=== PATIENT | male | born 1955 | race Caucasian/White ===

== ENCOUNTER 2024-06-28 17:56 | Inpatient (IN) | payer MEDICARE, OTHER, SELFPAY ==
[2024-06-28] VITALS (10 sets, daily range): BP systolic 102–138; BP diastolic 65–78; BMI 33.8; BMI 33.7
[2024-06-28 12:19] LABS: ALT (SGPT) 21 U/L (0-50); AST (SGOT) 37 U/L (17-59); Albumin 2.9 g/dl (3.5-5.0); Alkaline Phosphatase 73 U/L (38-126); Blood Urea Nitrogen 17 mg/dl (9-20); Calcium 8.2 mg/dl (8.4-10.2); Carbon Dioxide 25 mmol/L (22-30); Chloride 102 mmol/L (98-107); Estimated Creatinine Clearance 52 ml/min; Glucose 127 mg/dl (70-99); Potassium 3.1 mmol/L (3.5-5.1); Sodium 133 mmol/L (135-145); Total Bilirubin 0.9 mg/dl (0.2-1.3); Total Protein 6.8 g/dl (6.3-8.2); eGFR 43.37
--- NOTE | 2024-06-28 12:22 | ED.GENMED ---
History of Present Illness
General
Chief Complaint: Abnormal Lab Value
Source: patient
Exam Limitations: none
Time Seen by Provider: 06/28/24 11:27
History of Present Illness
History of Present Illness:
69-year-old male presents with fatigue and early satiety as well as weight loss. This has been getting worse over the past 2 weeks. He is lost 10 pounds in that time. He denies abdominal pain but takes 2 bites of food and feels full. He was
tested for COVID and flu which was negative. Outpatient labs drawn by Dr. Alvarado demonstrated elevated white blood cell count and low and they sent him here for evaluation. He has a history of hypertension and BPH. No prior abdominal surgical
Phy Exam
Physical Exam
Physical Exam:
General: Well-appearing male no acute respiratory distress
HEENT: Normocephalic atraumatic dorsalis
Heart: Regular rate and rhythm no murmurs
Lungs: CTA bilaterally
Abdomen: Soft nontender nondistended no guarding or rebound
Extremities: No cyanosis or edema
Skin: Warm, no rash
Course
Orders/Labs/Results
Orders:
Orders
06/28/24 11:41
CT Abd/pelvis W Iv Cont Urgent
Comment:
Reason For Exam: abdominal fullness
06/28/24 11:42
Complete Blood Count/With Diff Urgent
Comprehensive Metabolic Panel Urgent
LDH Urgent
Manual Differential Urgent
Uric Acid Urgent
06/28/24 14:04
Add On- LAB Urgent
Tests Added?: uric acid, LDH
06/28/24 14:21
0.9% Sodium Chloride 1000 ml [Nss] 1,000 ml IV BOLUS
Potassium Chloride [KCl] 40 meq PO NOW STA
06/28/24 16:08
Allopurinol [Zyloprim] 300 mg PO NOW STA
Abnormal Lab Results
06/28/24
11:42
WBC 84.5 H* 10^3/uL
(4.8-10.8)
RBC 2.75 L 10^6/uL
(4.70-6.10)
Hgb 9.0 L g/dL
(13.0-18.0)
Hct 26.5 L %
(39.0-52.0)
MCV 96.4 H fL
(80.0-94.0)
MCH 32.7 H pg
(27.0-31.0)
RDW 15.0 H %
(11.5-14.5)
Plt Count 48 L 10^3/uL
(130-400)
MPV 12.5 H fL
(7.4-10.4)
Abs Neuts (Manual) 0.8 L* 10^3/uL
(1.4-6.5)
Segmented Neutrophils 1 L %
(42-75)
Lymphocytes (Manual) 19 L %
(20-51)
Monocytes (Manual) 61 H %
(2-9)
Blast Cells 6 H* %
(-)
Sodium 133 L mmol/L
(135-145)
Potassium 3.1 L mmol/L
(3.5-5.1)
Creatinine 1.7 H mg/dL
(0.7-1.3)
Glucose 127 H mg/dl
(70-99)
Uric Acid 10.9 H mg/dl
(3.5-8.5)
Calcium 8.2 L mg/dl
(8.4-10.2)
Lactate Dehydrogenase 1035 H U/L
(120-246)
Albumin 2.9 L g/dl
(3.5-5.0)
06/28/24 11:42
06/28/24 11:42
Vital Signs
Initial and Last Documented VS:
Initial Vital Signs
Temp Pulse Resp Pulse Ox
99.4 F 50 16 94
06/28/24 11:23 06/28/24 11:23 06/28/24 11:23 06/28/24 11:23
Last Documented Vital Signs
Temp Pulse Resp BP Pulse Ox
99.4 F 85 12 138/77 93
06/28/24 11:23 06/28/24 16:00 06/28/24 16:00 06/28/24 16:00 06/28/24 16:00
MDM/Problems Addressed
Differential Diagnosis Includes:
Patient sent in for fatigue weight loss and early satiety associated with elevated white count and low platelets. concern for possible blood disorder. Given early satiety and weight loss CT of the abdomen was ordered. Labs pending
*Critical Care Note
Total Time (30-74mins, 75-104mins- exclusive of procedures): Not Applicable
Update Note
Update Note:
Labs with several abnormalities including white blood cell count of 84.5 and platelet count of 48,006% blast cells. He also has acute kidney injury with a creatinine of 1.7. Discussed findings with hematology who saw the patient here and
recommended adding a uric acid and LDH. Uric acid is 10.9 LDH is 1035. 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
ED Attending Note
-
Portions of this chart may have been created with voice recognition software.� Occasional wrong word or��sound alike� substitutions may have occurred due to the inherent limitations of voice recognition software.
Discharge Plan
Departure
Patient Disposition: Admit
Date of Disposition: 06/28/24
Time of Disposition: 16:13
Presentation/result/management discussed w/ accepting MD/DO: Hospitalist
Discharge Problem:
Acute dehydration, ANCELMO (acute kidney injury)
Prescriptions:
No Action
metoprolol succinate 50 mg Tablet Extended Release 24 Hr
50 mg PO QPM
finasteride 5 mg Tablet
5 mg PO QPM
solifenacin 10 mg Tablet
10 mg PO QPM
Referrals:
Amandeep Montano DO [Family Provider] -
Interventions
Interventions:
*Risk Screen - Suicide Last Done: 06/28/24 11:23
*General Assessment Last Done: 06/28/24 11:54
*Neglect/Abuse Screening Last Done: 06/28/24 11:23
ED- Fall Risk Assessment Last Done: 06/28/24 11:54
*ED COVID-19 Vaccine History Last Done: 06/28/24 11:54
Discharge Date and Time
Print Language: FRENCH
[2024-06-28 12:46] LABS: Hematocrit 26.5 % (39.0-52.0); Mean Corpuscular Hgb 32.7 pg (27.0-31.0); Mean Corpuscular Volume 96.4 fL (80.0-94.0); Red Blood Cell Count 2.75 10^6/uL (4.70-6.10); White Blood Cell Count 84.5 10^3/uL (4.8-10.8)
[2024-06-28 13:17] LABS: Mean Platelet Volume 12.5 fL (7.4-10.4); Platelet Count 48 10^3/uL (130-400)
[2024-06-28 13:18] LABS: Atypical Lymphocytes 7 %; Band Neutrophils 0 % (0-3); Lymphocytes 19 % (20-51); Monocytes 61 % (2-9); Platelets Checked Yes; Promyelocytes 6 % (-); Segmented Neutrophils 1 % (42-75)
[2024-06-28 13:20] LABS: Absolute Neutrophils -Man Diff 0.8 10^3/uL (1.4-6.5); Anisocytosis Slight; Blasts 6 % (-); Hypochromasia Slight; Normal RBC Morphology No
[2024-06-28 13:21] LABS: Total Cells Counted 100
[2024-06-28] MEDS: NSS 1000 IV (14:30)
[2024-06-28] MEDS: KCL 40 MEQ PO (14:30)
[2024-06-28 14:47] LABS: Uric Acid 10.9 mg/dl (3.5-8.5)
[2024-06-28 15:20] LABS: LDH 1035 U/L (120-246)
[2024-06-28] MEDS: ZYLOPRIM 300 MG PO (16:12)
--- NOTE | 2024-06-28 16:18 | CON.ONC ---
Impression
Impression
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
Renal insufficiency possible component of tumor lysis syndrome
Hyperuricemia
Hypertension
YOLANDA
History of abdominal aortic aneurysm
BPH
Plan
Plan
Hydrate with alkalinized fluids
Monitor CBC CMP and uric acid
If uric acid unresponsive to allopurinol and fluids consider Elitek
Bone marrow biopsy
BCR-ABL
Consider initiation of hydroxyurea once bone marrow completed discussed
Bone marrow biopsy discussed with IR and administration anticipate for tomorrow
Patient History
History of Present Illness
69-year-old male presents with fatigue, early satiety as well as weight loss. He is lost 10 pounds in that time. He denies abdominal pain but takes 2 bites of food and feels full. He was evaluated by his PCP and a CBC was performed which revealed
a white blood cell count of 90K with mild anemia. He was sent to the emergency room for evaluation repeat CBC confirmed leukocytosis. Peripheral smear shows evidence of 5 to 10% blasts and monocytic forms most consistent with possible CMML and
transformation. His baseline creatinine on presentation was 1.7 LDH and uric acid were concerning for low-grade tumor lysis syndrome. Patient has been admitted to the hospital for IV fluids and diagnostic procedures
Past-Medical/Surgical History
Past medical history significant for hypertension, obstructive sleep apnea, mixed hyperlipidemia, BPH and abdominal aortic aneurysm
Past surgical history unremarkable
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
Family history unremarkable
Patient Medication
�Medication �Instructions �Recorded �Confirmed �Last Taken �Type
finasteride 5 mg tablet 5 mg PO QPM 06/28/24 06/28/24 06/27/24 History
metoprolol succinate 50 mg 50 mg PO QPM 06/28/24 06/28/24 06/27/24 History
tablet,extended release 24 hr
solifenacin 10 mg tablet 10 mg PO QPM 06/28/24 06/28/24 06/27/24 History
Review of Systems
-
12 point review systems unremarkable other than those systems reviewed in HPI
Physical Exam
-
General: Well Developed, Well Nourished and No Apparent Distress
HEENT: Negative Jaundice
Cardiology: Normal Sinus Rhythm
Pulmonary: Clear; Negative Wheezes
GI: Soft and Spleenomegaly
Musculoskeletal: No Cyanosis and No Edema
Extremities: Pulses Present
Neurology: Non Focal and No Lateralizing Symptoms
Skin: Warm and Dry
Hematologic / Lymphatic: No Lymphadenopathy
Psych: Calm
Labs
Lab Results
WBC 84.5 10^3/uL (4.8-10.8) H* 06/28/24 11:42
RBC 2.75 10^6/uL (4.70-6.10) L 06/28/24 11:42
Hgb 9.0 g/dL (13.0-18.0) L 06/28/24 11:42
Hct 26.5 % (39.0-52.0) L 06/28/24 11:42
MCV 96.4 fL (80.0-94.0) H 06/28/24 11:42
MCH 32.7 pg (27.0-31.0) H 06/28/24 11:42
MCHC 34.0 g/dL (33.0-37.0) 06/28/24 11:42
RDW 15.0 % (11.5-14.5) H 06/28/24 11:42
Plt Count 48 10^3/uL (130-400) L 06/28/24 11:42
MPV 12.5 fL (7.4-10.4) H 06/28/24 11:42
Creatinine 1.7 mg/dL (0.7-1.3) H 06/28/24 11:42
Vital Signs
Vital Signs
Temp Pulse Resp BP Pulse Ox
99.4 F 85 12 138/77 93
06/28/24 11:23 06/28/24 16:00 06/28/24 16:00 06/28/24 16:00 06/28/24 16:00
--- NOTE | 2024-06-28 16:26 | HPS.HSE ---
Family Physician
-
Family Physician: Amandeep Montano
Chief Complaint
-
abnormal out patient labs
History of Present Illness
Patient is a 69-year-old male with past medical history significant for hypertension, and BPH who presented to [place] ED for evaluation by recommendation of primary provider after receiving abnormal out patient labs. Patient reports mild flu
like symptoms for last 2 weeks (i.e. non-productive cough, sneezing, poor appetite, dry mouth, and abnormal taste in mouth) and was seen in Urgent Care with no specific diagnosis and sent home. Patient states symptoms did not improve so he went to
see primary care provider who ordered out patient labs. When labs resulted primary provider called and recommended ED evaluation. Denies any fever, chills, shortness of breath, chest pain, nausea, vomiting, constipation or urinary symptoms.
Medical History
Past Medical History
Past Medical History: Reports Other
Additional Past Medical History:
benign hypertension
BPH
Past Surgical History: Reports Other
Additional Past Surgical History:
right ankle repair (1982)
L1-2 (1983)
tonsillectomy
Social History
Tobacco: Non-smoker
Alcohol: None
Drug: None
Personal:
Living: With Family
Employment: Employed
Family History
Family History: Not pertinent
Allergies / Home Medications
Allergies reflects when Allergies were last updated in [facility].
Home Medications with original date entered in [facility]
Allergy/Medication List:
Allergies
Allergy/AdvReac Type Severity Reaction Status Date / Time
No Known Allergies Allergy Verified 06/28/24 11:26
Home Medications
finasteride 5 mg tablet 5 mg PO QPM 06/28/24
metoprolol succinate 50 mg tablet,extended release 24 hr 50 mg PO QPM 06/28/24
solifenacin 10 mg tablet 10 mg PO QPM 06/28/24
Review of Systems
-
History Source: Patient
Constitutional: Reports No Symptoms
EENT: Reports No Symptoms and Other (dry mouth)
Respiratory: Reports Cough
Cardiac: Reports No Symptoms
Abdomen/GI: Reports No Symptoms
: Reports No Symptoms
Musculoskeletal: Reports No Symptoms
Skin: Reports No Symptoms
Neurological: Reports No Symptoms
Endocrine: Reports No Symptoms
Hematologic/Lymphatic: Reports No Symptoms
Psych: Reports No Symptoms
Physical Exam
Vital Signs
Vital Signs
Temp Pulse Resp BP Pulse Ox
99.4 F 85 12 138/77 93
06/28/24 11:23 06/28/24 16:00 06/28/24 16:00 06/28/24 16:00 06/28/24 16:00
Physical Exam
General: Well Developed, Well Nourished, No Apparent Distress, Comfortable and Conversant
HEENT: NormoCephalic, Moist mucous membranes, Atraumatic, Barnett Conjunctivae, Nose Appears Normal and Ears Appear Normal
Respiratory: Clear and Non Labored Respirations
Cardiac: S1/S2 and Regular Rhythm; No Murmur, Rub or Gallop
Breast: Deferred by me
GI: Soft, Non Tender, Non Distended and Normal Bowel Sounds; No Organomegaly
Rectal: Deferred by Provider
Genito-urinary: Deferred by me
Musculoskeletal: No Clubbing, No Cyanosis and No Edema
Skin: No Rash
Neuro: Awake, Alert, AO x 3 and Nonfocal/grossly intact
Psych: Calm and Intact Judgment/Insight
Laboratory Results
-
06/28/24 11:42
06/28/24 11:42
Laboratory Results
Total Bilirubin 0.9 mg/dl (0.2-1.3) 06/28/24 11:42
AST 37 U/L (17-59) 06/28/24 11:42
ALT 21 U/L (0-50) 02/06/25 11:42
Alkaline Phosphatase 73 U/L (38-126) 06/28/24 11:42
Data Reviewed
-
CT Scan: Report Reviewed by me (Abd/Pelvis: 1. Periportal and portacaval lymphadenopathy, nonspecific. Multiple scattered smaller lymph nodes in the upper abdomen, mesentery, and retroperitoneum. 2. Punctate left lower pole renal calculus. 3.
Dependent calculi in the urinary bladder lumen with a largest measuring 0.8 cm. 4. Spleno)
Lab Data: Labs Reviewed by me (WBC 84.5, hgb 9.0, hct 26.5, Na 133, K 3.1, Creat 1.7, uric acid 10.9, Lactate dehydrogenase 1035)
Impression/Plan
-
IMPRESSION/PLAN:
#Leukocytosis
#Hyperuricemia
Abd/Pelvis: 1. Periportal and portacaval lymphadenopathy, nonspecific. Multiple scattered smaller lymph nodes in the upper abdomen, mesentery, and retroperitoneum.
2. Punctate left lower pole renal calculus.
3. Dependent calculi in the urinary bladder lumen with a largest measuring 0.8 cm.
4. Splenomegaly.
5. Hepatic steatosis.
6. Other chronic findings, as detailed above.
WBC 84.5
Uric Acid 1035
- admit med/surg
- consult heme/onc
- consult IR
- IVF with LR
- Allopurinol 300mg q8
- uric acid in morning
- NPO after midnight for likely bone marrow biopsy tomorrow
#acute kidney injury
BUN 17, Creat 1.7
- IVF
- monitor BMP
#hypokalemia
- monitor BMP
- replete
#benign hypertension
- continue metoprolol
#BPH
- continue finasteride and solifenacin
Code status: Full code
DVT prophylaxis: SCDs
--- NOTE | 2024-06-28 17:01 | W.PN.UPDATE ---
Update Note
Progress Note Update
This is an addendum to the H&P written by Shala Hess on 06/28/2024.� Patient seen and examined independently with [employer].
69-year-old male past medical history of hypertension, BPH, obstructive sleep apnea, presenting with generalized symptoms of poor appetite, dry mouth, sneezing for the past 2 weeks.� Went to urgent care and found to have high white cell count and
sent to the emergency room.
Vitals normal.
Labs show white cell count of 84 with absolute neutrophils of 0.8.� 6 blasts.� Anemia with hemoglobin of 9 macrocytic.� Thrombocytopenia platelets of 48.
Potassium 3.1.� Creatinine 1.7.� Uric acid of 10.9.� LDH of 1000.
Presentation consistent with newly discovered CML with concern for tumor lysis syndrome with associated anemia/thrombocytopenia.� ANCELMO likely due to tumor lysis syndrome.
IV fluids.� Potassium repletion.� Allopurinol started.� Oncology consulted and planning on bone marrow biopsy tomorrow.� Anemia workup.� N.p.o. postmidnight.
[2024-06-28] MEDS: LR 1000 IV (19:53)
[2024-06-28] MEDS: PROSCAR 5 MG PO (19:53)
[2024-06-28] MEDS: TOPROL XL 50 MG PO (19:53)
[2024-06-28] MEDS: DETROL LA 4 MG PO (19:53)
[2024-06-28] MEDS: TUMS CHEWABLE TABLET 200 MG PO (21:08)
[2024-06-29] VITALS (7 sets, daily range): BP systolic 87–144; BP diastolic 72–84
[2024-06-29 07:04] LABS: Hematocrit 24.3 % (39.0-52.0); Hemoglobin 8.1 g/dL (13.0-18.0); Mean Corp Hgb Conc. 33.3 g/dL (33.0-37.0); Mean Corpuscular Hgb 32.4 pg (27.0-31.0); Mean Corpuscular Volume 97.2 fL (80.0-94.0); Platelet Count 37 10^3/uL (130-400); Red Cell Dist. Width 15.1 % (11.5-14.5)
[2024-06-29 07:18] LABS: Absolute Neutrophils -Man Diff 3.2 10^3/uL (1.4-6.5); Atypical Lymphocytes 7 %; Band Neutrophils 0 % (0-3); Lymphocytes 14 % (20-51); Monocytes 66 % (2-9); Platelets Checked Yes; Segmented Neutrophils 4 % (42-75)
[2024-06-29 07:19] LABS: Anisocytosis Slight; Hypochromasia Slight; Normal RBC Morphology No; Ovalocytes Slight; Total Cells Counted 100
[2024-06-29 07:21] LABS: Blasts 9 % (-); White Blood Cell Count 81.5 10^3/uL (4.8-10.8)
[2024-06-29 07:45] LABS: ALT (SGPT) 18 U/L (0-50); AST (SGOT) 36 U/L (17-59); Albumin 2.5 g/dl (3.5-5.0); Alkaline Phosphatase 64 U/L (38-126); Blood Urea Nitrogen 19 mg/dl (9-20); Carbon Dioxide 24 mmol/L (22-30); Chloride 105 mmol/L (98-107); Estimated Creatinine Clearance 59 ml/min; Glucose 101 mg/dl (70-99); Potassium 3.3 mmol/L (3.5-5.1); Sodium 135 mmol/L (135-145); Total Bilirubin 0.6 mg/dl (0.2-1.3); Total Protein 6.1 g/dl (6.3-8.2); Uric Acid 9.1 mg/dl (3.5-8.5)
--- NOTE | 2024-06-29 08:19 | W.PN.HOSP.TC ---
Today's Communication/Plan
-
Bone marrow biopsy today
Assessment / Plan
Assessment / Plan
#Leukocytosis
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
White blood cell count 81
Continue to trend elevated LDH and uric acid�tumor lysis syndrome
Continue lactated Ringer's
Oncology consulted, input appreciated
Bone marrow biopsy at noon today
#Hypokalemia
3.3 on 06/29
P.o. 40 mg potassium given
Replete as necessary
#ANCELMO likely secondary to tumor lysis syndrome
Continue IV fluids
#Essential hypertension
Continue beta-blockers
#BPH
Continue finasteride and Solifenacin
#Obesity
Full code
DVT prophylaxis�SCDs
Anticipated Discharge: 24 - 48 hours
Subjective/Interval History
-
Date of Service: June 29, 2024
69-year-old male with past medical history of hypertension and BPH who presents to [facility] after abnormal labs. He states that overnight he had no acute events, just slept poorly due to being in the hospital. He has nausea, vomiting,
shortness of breath or chest pain. He is planned for bone marrow biopsy today.
Objective Data
-
Labs:
Laboratory Results
06/29/24 06/29/24
06:15 08:10
WBC 81.5 H*
Hgb 8.1 L
Hct 24.3 L
Plt Count 37 L D
PT Pending
INR Pending
Sodium 135
Potassium 3.3 L
Chloride 105
Carbon Dioxide 24
BUN 19
Creatinine 1.5 H
Glucose 101 H
Calcium 8.0 L
Total Bilirubin 0.6
AST 36
ALT 18
Alkaline Phosphatase 64
Vital Signs:
Vital Signs
Temp Pulse Resp BP Pulse Ox
98.8 F 100 21 135/69 96
06/28/24 23:12 06/28/24 23:12 06/28/24 23:12 06/28/24 23:12 06/29/24 00:40
I&O
06/28/24 06/29/24 06/30/24
06:59 06:59 06:59
Intake Total 1480 / 1480
Balance 1480 / 1480
Review of Systems
-
History Source: Patient
Constitutional: Reports No Symptoms
EENT: Reports No Symptoms Reported
Respiratory: Reports No Symptoms
Cardiac: Reports No Symptoms
Abdomen/GI: Reports No Symptoms
Genitourinary: Reports Frequency
Musculoskeletal: Reports No Symptoms
Physical Exam
-
General: Well Developed, Well Nourished, No Apparent Distress, Comfortable and Conversant
HEENT: Normocephalic and Atraumatic
Respiratory: Clear to Auscultation
Cardiac: Regular Rhythm and S1/S2
GI: Soft and Nontender
Musculoskeletal: No Clubbing, No Cyanosis and No Edema
Skin: Warm and Dry
Neuro: AO x 3
Psych: Calm
Data Reviewed
-
Labs: Labs Reviewed by me and Discussed with Physician
Old Records: Reviewed
[2024-06-29 08:33] LABS: INR 1.47
[2024-06-29] MEDS: LR 1000 IV ×2 (09:18→21:26)
[2024-06-29] MEDS: FLUSH (NSS) 1 FLUSH IV (09:18)
--- NOTE | 2024-06-29 09:37 | W.PN.UPDATE ---
Update Note
Progress Note Update
I saw and evaluated the patient. I reviewed the resident�s note and agree with findings and plan as documented in the resident�s note.
Gen: NAD, AAOx3.
Eyes: EOMI, PERRLA, no scleral icterus.
Neck: supple.
CV: RRR, +S1/S2, no m/r/g.
Resp: CTAB, no rales, wheezes, or rhonchi.
Abd: +BS, soft, NT, ND
Skin: No rashes.
Neuro: CN 2-12 intact, non-focal.
Psych: Normal mood and affect.
CT A/P:
1. Periportal and portacaval lymphadenopathy, nonspecific. Multiple scattered smaller lymph nodes in the upper abdomen, mesentery, and retroperitoneum.
2. Punctate left lower pole renal calculus.
3. Dependent calculi in the urinary bladder lumen with a largest measuring 0.8 cm.
4. Splenomegaly.
5. Hepatic steatosis.
Leukocytosis likely due to CMML:
-blasts 9%, monocytes 66%
-associated anemia/thrombocytopenia
-Elevated LDH/Uric Acid c/w tumor lysis syndrome
-Oncology following
-Bone marrow biopsy today
-Continue LR
-ANCELMO due to acute process with tumor lysis syndrome, creatinine improving with IVFs
Other problems:
Essential hypertension: Continue BB
BPH: Cont finasteride and solifenacin
Obesity due to excess calories
FULL/SCDs with thrombocytopenia and BMBx today
--- NOTE | 2024-06-29 11:04 | PTCARENOTE ---
pt transported to IR at this time for bone marrow biopsy.
[2024-06-29] MEDS: ATIVAN 0.5 MG IV (11:41)
[2024-06-29] MEDS: NSS (PRESERVATIVE FREE) 0.25 ML IV (11:42)
--- NOTE | 2024-06-29 12:24 | W.PN.UPDATE ---
Update Note
Progress Note Update
Pt undergoing bone marrow biopsy today - in IR currently
-CBC findings concerning for CMML w/ possible increased blasts vs AML
-hemoglobin holding 8.1g/dl - plts 37,000 - ANC 3200
-PT slighlty prolonged - INR 1.47 - check aPTT and fibrinogen
-check periblood flow cytometry
-ANCELMO w/ uric acid elevation - concern for tumor lysis syndrome - allopuronol/ IVF as per nephrology
-afebrile
Will continue to follow with you.
--- NOTE | 2024-06-29 13:10 | PTCARENOTE ---
Received report from Madeline in IR. Pt arrived back to rm [id number] at this time, AAOx3, denying any pain/SOB. 4x4 gauze with tegaderm to right lower back- CDI. Vital signs noted. Pt ordering lunch, will monitor.
[2024-06-29 14:44] LABS: APTT 37.3 Sec (23.4-35.0)
[2024-06-29] MEDS: KCL 40 MEQ PO (14:52)
[2024-06-29 15:04] LABS: Fibrinogen 354 MG/DL (199-459)
[2024-06-29] MEDS: TOPROL XL 50 MG PO (17:35)
[2024-06-29] MEDS: PROSCAR 5 MG PO (17:35)
[2024-06-29] MEDS: DETROL LA 4 MG PO (17:35)
[2024-06-30] MEDS: LR 1000 IV ×2 (06:23→17:16)
[2024-06-30 07:05] VITALS: BP 149/77
[2024-06-30 08:31] LABS: ALT (SGPT) 22 U/L (0-50); AST (SGOT) 42 U/L (17-59); Albumin 2.8 g/dl (3.5-5.0); Alkaline Phosphatase 62 U/L (38-126); Blood Urea Nitrogen 15 mg/dl (9-20); Calcium 8.2 mg/dl (8.4-10.2); Carbon Dioxide 25 mmol/L (22-30); Chloride 103 mmol/L (98-107); Estimated Creatinine Clearance 68 ml/min; Glucose 113 mg/dl (70-99); Potassium 3.5 mmol/L (3.5-5.1); Sodium 134 mmol/L (135-145); Total Protein 6.5 g/dl (6.3-8.2); eGFR 59.84
[2024-06-30 08:48] VITALS: BP 149/77
--- NOTE | 2024-06-30 09:02 | W.PN.UPDATE ---
Update Note
Progress Note Update
I saw and evaluated the patient. I reviewed the resident�s note and agree with findings and plan as documented in the resident�s note.
No new complaints.
Gen: NAD, AAOx3.
Eyes: EOMI, PERRLA, no scleral icterus.
Neck: supple.
CV: Remains RRR, +S1/S2, no m/r/g.
Resp: remains CTAB, no rales, wheezes, or rhonchi.
Abd: Remains +BS, soft, NT, ND
Skin: No rashes.
Neuro: CN 2-12 intact, non-focal.
Psych: Normal mood and affect.
CT A/P:
1. Periportal and portacaval lymphadenopathy, nonspecific. Multiple scattered smaller lymph nodes in the upper abdomen, mesentery, and retroperitoneum.
2. Punctate left lower pole renal calculus.
3. Dependent calculi in the urinary bladder lumen with a largest measuring 0.8 cm.
4. Splenomegaly.
5. Hepatic steatosis.
Leukocytosis likely due to CMML:
-blasts 9%, monocytes 66%
-associated anemia/thrombocytopenia
-Elevated LDH/Uric Acid c/w tumor lysis syndrome
-Oncology following
-Bone marrow biopsy done 06/29/24
-Continue LR
-ANCELMO due to acute process with tumor lysis syndrome, creatinine improving with IVFs
Other problems:
Essential hypertension: Continue BB
BPH: Cont finasteride and solifenacin
Obesity due to excess calories
FULL/SCDs with thrombocytopenia
Dispo: Will discuss timing of discharge with oncology. I suspect he will either be later today or tomorrow morning.
[2024-06-30 09:22] LABS: Hematocrit 24.5 % (39.0-52.0); Hemoglobin 8.2 g/dL (13.0-18.0); Mean Corp Hgb Conc. 33.5 g/dL (33.0-37.0); Mean Corpuscular Hgb 32.9 pg (27.0-31.0); Mean Corpuscular Volume 98.4 fL (80.0-94.0); Mean Platelet Volume 12.8 fL (7.4-10.4); Platelet Count 42 10^3/uL (130-400); Red Blood Cell Count 2.49 10^6/uL (4.70-6.10); Red Cell Dist. Width 15.1 % (11.5-14.5); White Blood Cell Count 87.7 10^3/uL (4.8-10.8)
--- NOTE | 2024-06-30 09:34 | W.PN.HOSP.TC ---
Today's Communication/Plan
-
continue IVF
Assessment / Plan
Assessment / Plan
#Leukocytosis
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
White blood cell count 81
Continue to trend elevated LDH and uric acid�tumor lysis syndrome
Continue lactated Ringer's
Oncology consulted, input appreciated
Bone marrow biopsy completed yesterday
flow cytometry pending
#Hypokalemia
3.3 on 06/29
P.o. 40 mg potassium given
Replete as necessary
#ANCELMO likely secondary to tumor lysis syndrome
Continue IV fluids
#Essential hypertension
Continue beta-blockers
#BPH
Continue finasteride and Solifenacin
#Obesity
Full code
DVT prophylaxis�SCDs
Anticipated Discharge: 24 - 48 hours
Subjective/Interval History
-
Date of Service: June 30, 2024
No acute events overnight. Only complaint is increased frequency of urination secondary to IVF.
Objective Data
-
Labs:
Laboratory Results
06/30/24
07:38
WBC 87.7 H*
Hgb 8.2 L
Hct 24.5 L
Plt Count 42 L
Sodium 134 L
Potassium 3.5
Chloride 103
Carbon Dioxide 25
BUN 15
Creatinine 1.3
Glucose 113 H
Calcium 8.2 L
Total Bilirubin 1.0
AST 42
ALT 22
Alkaline Phosphatase 62
Vital Signs:
Vital Signs
Temp Pulse Resp BP Pulse Ox
98.7 F 89 18 149/77 93
06/30/24 07:05 06/30/24 07:05 06/30/24 07:05 06/30/24 07:05 06/30/24 07:05
I&O
06/29/24 06/30/24 07/01/24
06:59 06:59 06:59
Intake Total 1480 / 1480 2360 / 2360
Output Total 350 / 350
Balance 1480 / 1480 2360 / 2360 -350 / -350
Review of Systems
-
History Source: Patient
Constitutional: Reports No Symptoms
EENT: Reports No Symptoms Reported
Respiratory: Reports No Symptoms
Cardiac: Reports No Symptoms
Abdomen/GI: Reports No Symptoms
Genitourinary: Reports No Symptoms
Musculoskeletal: Reports No Symptoms
Physical Exam
-
General: Well Developed, Well Nourished, No Apparent Distress, Comfortable and Conversant
HEENT: Normocephalic and Atraumatic
GI: Soft, Nontender and Nondistended
Musculoskeletal: No Clubbing, No Cyanosis and No Edema
Skin: Warm and Dry
Neuro: AO x 3
Psych: Calm
Data Reviewed
-
Labs: Labs Reviewed by me and Discussed with Physician
Old Records: Reviewed
[2024-06-30 13:46] LABS: Absolute Neutrophils -Man Diff 2.6 10^3/uL (1.4-6.5); Atypical Lymphocytes 6 %; Band Neutrophils 0 % (0-3); Lymphocytes 22 % (20-51); Monocytes 63 % (2-9); Segmented Neutrophils 3 % (42-75)
[2024-06-30 13:52] LABS: Blasts 6 % (-)
[2024-06-30 14:57] LABS: Platelets Checked YES
[2024-06-30 14:58] LABS: Normal RBC Morphology No; Nucleated Red Blood Cells 1 (-); Ovalocytes FEW; Target Cells FEW; Total Cells Counted 100
[2024-06-30 15:05] VITALS: BP 130/81
[2024-06-30] MEDS: DETROL LA 4 MG PO (16:45)
[2024-06-30] MEDS: TOPROL XL 50 MG PO (16:45)
[2024-06-30] MEDS: PROSCAR 5 MG PO (16:45)
[2024-06-30 23:47] VITALS: BP 141/87
[2024-07-01] MEDS: LR 1000 IV (03:07)
[2024-07-01 07:05] VITALS: BP 140/74
[2024-07-01 07:47] LABS: Hematocrit 23.9 % (39.0-52.0); Hemoglobin 7.9 g/dL (13.0-18.0); Mean Corp Hgb Conc. 33.1 g/dL (33.0-37.0); Mean Corpuscular Hgb 33.2 pg (27.0-31.0); Mean Corpuscular Volume 100.4 fL (80.0-94.0); Mean Platelet Volume 12.7 fL (7.4-10.4); Platelet Count 41 10^3/uL (130-400); Red Blood Cell Count 2.38 10^6/uL (4.70-6.10); Red Cell Dist. Width 15.2 % (11.5-14.5); White Blood Cell Count 99.3 10^3/uL (4.8-10.8)
[2024-07-01 08:04] LABS: ALT (SGPT) 25 U/L (0-50); AST (SGOT) 47 U/L (17-59); Albumin 2.7 g/dl (3.5-5.0); Alkaline Phosphatase 66 U/L (38-126); Blood Urea Nitrogen 12 mg/dl (9-20); Calcium 8.1 mg/dl (8.4-10.2); Carbon Dioxide 25 mmol/L (22-30); Chloride 100 mmol/L (98-107); Estimated Creatinine Clearance 64 ml/min; Glucose 110 mg/dl (70-99); Potassium 3.2 mmol/L (3.5-5.1); Sodium 133 mmol/L (135-145); Total Bilirubin 0.9 mg/dl (0.2-1.3); Total Protein 6.5 g/dl (6.3-8.2); eGFR 54.75
--- NOTE | 2024-07-01 08:48 | W.PN.UPDATE ---
Update Note
Progress Note Update
I saw and evaluated the patient. I reviewed the resident�s note and agree with findings and plan as documented in the resident�s note.
Patient continues to complain that he has to urinate every 20 minutes.
Gen: NAD, AAOx3.
Eyes: EOMI, PERRLA, no scleral icterus.
Neck: supple.
CV: continues to remain RRR, +S1/S2, no m/r/g.
Resp: continues to remain CTAB, no rales, wheezes, or rhonchi.
Abd: continues to remain +BS, soft, NT, ND
Skin: No rashes.
Neuro: CN 2-12 intact, non-focal.
Psych: Normal mood and affect.
CT A/P:
1. Periportal and portacaval lymphadenopathy, nonspecific. Multiple scattered smaller lymph nodes in the upper abdomen, mesentery, and retroperitoneum.
2. Punctate left lower pole renal calculus.
3. Dependent calculi in the urinary bladder lumen with a largest measuring 0.8 cm.
4. Splenomegaly.
5. Hepatic steatosis.
Leukocytosis likely due to CMML:
-blasts 9%, monocytes 66%
-associated anemia/thrombocytopenia
-Elevated LDH/Uric Acid c/w tumor lysis syndrome
-Oncology following, discussed at length with Dr. Lao over the phone.
-Bone marrow biopsy done 06/29/24
-ANCELMO due to acute process with tumor lysis syndrome, creatinine improved with IVFs. Stop IVFs and trend Cr (OK with ONC).
Other problems:
Hypokalemia: total 80meq K today
Hyponatremia, mild
Essential hypertension: Continue BB
BPH: Cont finasteride and solifenacin
Obesity due to excess calories
Patient's updated at length at bedside.
FULL/SCDs with thrombocytopenia
Total time spent on today's encounter was 50 minutes which included time spent in counseling the patient/family regarding diagnosis and treatment plan as listed above, goals of care, and symptom management. Case was discussed with nursing staff,
specialists, and care coordinators/case management. All labs and imaging personally reviewed by me. Remainder the time spent in detailed review of previous records, lab data, imaging, and other medical provider documentation.
[2024-07-01] MEDS: KCL 40 MEQ PO ×2 (09:40→13:25)
--- NOTE | 2024-07-01 10:02 | W.PN.HOSP.TC ---
Today's Communication/Plan
-
Pending flow cytometry report
Assessment / Plan
Assessment / Plan
#Leukocytosis
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
White blood cell count 81
Continue to trend elevated LDH and uric acid�tumor lysis syndrome
Continue lactated Ringer's
Oncology consulted, input appreciated
Bone marrow biopsy completed
flow cytometry pending
#Hypokalemia
3.3 on 06/29
P.o. 40 mg potassium given
Replete as necessary
#ANCELMO likely secondary to tumor lysis syndrome
Continue IV fluids
#Essential hypertension
Continue beta-blockers
#BPH
Continue finasteride and Solifenacin
#Obesity
Full code
DVT prophylaxis�SCDs
Anticipated Discharge: Within 24 hours
Subjective/Interval History
-
Date of Service: July 01, 2024
No acute events overnight.
Objective Data
-
Labs:
Laboratory Results
07/01/24
06:41
WBC 99.3 H*
Hgb 7.9 L
Hct 23.9 L
Plt Count 41 L
Sodium 133 L
Potassium 3.2 L
Chloride 100
Carbon Dioxide 25
BUN 12
Creatinine 1.4 H
Glucose 110 H
Calcium 8.1 L
Total Bilirubin 0.9
AST 47
ALT 25
Alkaline Phosphatase 66
Vital Signs:
Vital Signs
Temp Pulse Resp BP Pulse Ox
98.6 F 87 18 140/74 95
07/01/24 07:05 07/01/24 07:05 07/01/24 07:05 07/01/24 07:05 07/01/24 07:05
I&O
06/30/24 07/01/24 07/02/24
06:59 06:59 06:59
Intake Total 2360 / 2360 1740 / 1740
Output Total 350 / 350
Balance 2360 / 2360 1390 / 1390
Review of Systems
-
History Source: Patient
All other systems: Reviewed and negative
Constitutional: Reports No Symptoms
EENT: Reports No Symptoms Reported
Respiratory: Reports No Symptoms
Cardiac: Reports No Symptoms
Abdomen/GI: Reports No Symptoms
Genitourinary: Reports Frequency (Secondary to IV fluid)
Skin: Reports No Symptoms
Neuro: Reports No Symptoms
Physical Exam
-
General: Well Developed, Well Nourished, No Apparent Distress, Comfortable and Conversant
HEENT: Normocephalic and Atraumatic
Respiratory: Clear to Auscultation
Cardiac: Regular Rhythm and S1/S2
GI: Soft, Nontender and Nondistended
Musculoskeletal: No Clubbing, No Cyanosis and No Edema
Skin: Warm and Dry
Neuro: AO x 3
Psych: Calm
Data Reviewed
-
Labs: Labs Reviewed by me and Discussed with Physician
Old Records: Reviewed
[2024-07-01 11:11] LABS: INR 1.46; PT 17.9 Sec (11.4-14.6)
[2024-07-01] MEDS: LR IV (11:31)
[2024-07-01 13:22] LABS: Absolute Neutrophils -Man Diff 1.9 10^3/uL (1.4-6.5); Atypical Lymphocytes 2 %; Band Neutrophils 0 % (0-3); Lymphocytes 16 % (20-51); Monocytes 69 % (2-9); Segmented Neutrophils 2 % (42-75)
[2024-07-01 13:23] LABS: Anisocytosis 1+; Myelocytes 2 % (-); Normal RBC Morphology No; Nucleated Red Blood Cells 2 (-); Platelets Checked Yes
[2024-07-01 13:24] LABS: Total Cells Counted 100
[2024-07-01 13:25] LABS: Blasts 9 % (-)
[2024-07-01 14:06] LABS: Fibrinogen 383 MG/DL (199-459)
[2024-07-01 15:00] VITALS: BP 112/69
[2024-07-01 15:45] LABS: Number Of Markers 39 markers; Source Blood
[2024-07-01] MEDS: TOPROL XL 50 MG PO (16:55)
[2024-07-01] MEDS: DETROL LA 4 MG PO (16:55)
[2024-07-01] MEDS: PROSCAR 5 MG PO (16:56)
[2024-07-01] MEDS: TUMS CHEWABLE TABLET 200 MG PO (16:56)
--- NOTE | 2024-07-01 23:05 | W.PN.ONC ---
Today's Communication / Plan
-
await flow cytometry to ascertain if monocytic leukemia AMMoL vs CMML as therapies markedly different
Impression
Impression
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
Renal insufficiency possible component of tumor lysis syndrome
Hyperuricemia
Hypertension
YOLANDA
History of abdominal aortic aneurysm
BPH
Plan
Plan
Hydrate with alkalinized fluids
Monitor CBC CMP and uric acid
If uric acid unresponsive to allopurinol and fluids consider Elitek
Bone marrow biopsy
BCR-ABL
Consider initiation of hydroxyurea once bone marrow completed discussed
Bone marrow biopsy discussed with IR performed 06/29
Subjective/Objective
Subjective/Objective
remains well w/o fever or bleeding
Vital Signs:
Vital Signs
Temp Pulse Resp BP Pulse Ox
98.8 F 101 18 112/69 100
07/01/24 15:00 07/01/24 15:00 07/01/24 15:00 07/01/24 15:00 07/01/24 15:00
Lab Results:
Laboratory Data
WBC 99.3 10^3/uL (4.8-10.8) H* 07/01/24 06:41
Hgb 7.9 g/dL (13.0-18.0) L 07/01/24 06:41
Plt Count 41 10^3/uL (130-400) L 07/01/24 06:41
PT 17.9 Sec (11.4-14.6) H 07/01/24 10:24
INR 1.46 07/01/24 10:24
APTT 40.0 Sec (23.4-35.0) H 07/01/24 10:24
eGFR 54.75 07/01/24 06:41
Orders
Orders
Orders From Last 24 Hours
07/01/24 10:24
Fibrinogen Stat
PT/INR [Prothrombin Time] Stat
PTT Stat
mixing studies PTT in AM
[2024-07-01 23:29] VITALS: BP 124/76
--- NOTE | 2024-07-02 05:16 | PTCARENOTE ---
Addendum entered by Rosa Slater 07/02/24 06:49:
Pt now agreeing to straight cath, bladder scanned for 475- House LDR RN order to straight cath- removed 500 mls clear yellow urine with one small clot.
Original Note:
2100: Pt stating frequency and urgency with urinating with HX of 'prostate issues'. bladder scanned at 2100 374 after voiding 50 mls clear yellow urine. Pt refusing catheter at this time.
0500: Bladder scanned pt for 398- pt refusing straight cath at this time. Stating he will speak with his this afternoon
[2024-07-02 06:49] VITALS: BP 125/77
[2024-07-02 09:04] LABS: Hematocrit 23.9 % (39.0-52.0); Mean Corp Hgb Conc. 33.5 g/dL (33.0-37.0); Mean Corpuscular Hgb 33.5 pg (27.0-31.0); Mean Platelet Volume 12.2 fL (7.4-10.4); Platelet Count 48 10^3/uL (130-400); Red Blood Cell Count 2.39 10^6/uL (4.70-6.10); Red Cell Dist. Width 15.2 % (11.5-14.5); White Blood Cell Count 130.6 10^3/uL (4.8-10.8)
[2024-07-02 09:17] LABS: ALT (SGPT) 31 U/L (0-50); AST (SGOT) 55 U/L (17-59); Albumin 2.7 g/dl (3.5-5.0); Alkaline Phosphatase 73 U/L (38-126); Blood Urea Nitrogen 13 mg/dl (9-20); Calcium 8.4 mg/dl (8.4-10.2); Carbon Dioxide 28 mmol/L (22-30); Chloride 103 mmol/L (98-107); Estimated Creatinine Clearance 56 ml/min; Glucose 116 mg/dl (70-99); Potassium 3.7 mmol/L (3.5-5.1); Sodium 134 mmol/L (135-145); Total Bilirubin 0.6 mg/dl (0.2-1.3); Total Protein 6.9 g/dl (6.3-8.2); Uric Acid 8.3 mg/dl (3.5-8.5); eGFR 46.64
--- NOTE | 2024-07-02 09:30 | W.PN.ONC2 ---
Today's Communication / Plan
-
Pt accepted in transfer to [facility] by Dr. James, heme malignancy service as level 0
continue allopurinol, monitor for TLS, DIC
start hydrea 500mg bid, monitor for sxs stasis
Impression
Impression
CBC findings concerning for CMML w/ possible increased blasts vs AML
-path review of smear with monocytosis and increased immature monocytic forms
-CT with splenomegly
-hemoglobin holding 8g/dl - plts 48,000 - WBC rising to 130,000
-coagulopathy with elev PT/INR/PTT -no evidence of acute DIC with normal fibrinogen -mixing studies pending
-peripheral flow showed atypical myeloid blasts, 30%. Increased monocytes, 58%. 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
-s/p bone marrow biopsy 06/29
-ANCELMO w/ uric acid elevation - concern for tumor lysis syndrome - now with normal uric acid on s/p allopurinol x 1 dose 06/28 and IVF
Hypertension
YOLANDA
History of abdominal aortic aneurysm
BPH
Plan
Plan
f/u Bone marrow biopsy -06/29
f/u BCR-ABL
f/u mixing studies
continue allopurinol
daily uric acid, LDH, phos
check coags & fibrinogen in am
consider hydrea for cytoreduction
consider transfer to tertiary center, pt preference is [facility] depending on BMBx results
transfuse Hgb <7 or prn sxs anemia
transfuse platelets <20 or prn bleeding
avoid nsaids, antiplatelets, anticoagulation with platelet count <50,000
at bedside provided updates.
Subjective/Objective
Subjective
no new complaints
Vital Signs:
Vital Signs
Temp Pulse Resp BP Pulse Ox
98.8 F 86 20 125/77 98
07/02/24 06:49 07/02/24 06:49 02/10/25 06:49 07/02/24 06:49 07/02/24 06:49
Lab Results:
Laboratory Data
WBC 130.6 10^3/uL (4.8-10.8) H* 07/02/24 08:32
Hgb 8.0 g/dL (13.0-18.0) L 07/02/24 08:32
Plt Count 48 10^3/uL (130-400) L 07/02/24 08:32
PT 17.9 Sec (11.4-14.6) H 07/01/24 10:24
INR 1.46 07/01/24 10:24
APTT 40.0 Sec (23.4-35.0) H 07/01/24 10:24
eGFR 46.64 07/02/24 08:32
Physical Exam
HEENT: Moist Mucous Membranes; No Jaundice
Cardiology: Normal Sinus Rhythm
Pulmonary: Clear
GI: Soft
Extremities: Pulses Present; No Edema
[2024-07-02 10:16] LABS: APTT 39.6 Sec (23.4-35.0)
[2024-07-02 10:17] LABS: 60 Min PTT 1:2 Mix 34.6; 60 Minute PTT Control 44.3 SEC; Control Immediate PTT 43.9 SEC; Imm Run PTT 1:10 Mix 37.7 SEC; Imm Run PTT 1:2 Mix 33.6
[2024-07-02 10:23] LABS: Absolute Neutrophils -Man Diff 6.5 10^3/uL (1.4-6.5); Band Neutrophils 1 % (0-3); Lymphocytes 5 % (20-51); Monocytes 70 % (2-9); Normal RBC Morphology Yes; Platelets Checked Yes; Segmented Neutrophils 4 % (42-75); Total Cells Counted 100
[2024-07-02 10:25] LABS: Blasts 20 % (-)
[2024-07-02] MEDS: ZYLOPRIM 100 MG PO (12:22)
[2024-07-02] MEDS: HYDREA 500 MG PO (13:25)
[2024-07-02 15:50] VITALS: BP 131/75
--- NOTE | 2024-07-02 15:53 | CM ---
Call to [place] [facility] area, no precert required, pt is a level 0, which is high priority and that they will call the floor as soon as there is a bed available.
--- NOTE | 2024-07-02 16:16 | W.PN.HOSP.TC ---
Addendum entered and electronically signed by Preston Sheth MD 07/03/24 00:48:
Attending Addendum:
I saw and evaluated the patient. I reviewed the resident�s note and agree with findings and plan as documented in the resident�s note. Sub: 'Do you have the results' No fevers chills Nursing states patient with urinary retention and calix placed.
Patient swith no urinary complaints. Full 12 point ROS reviewed and negative except as documented Exam: Vitals reviewed in chart GEN-NAD heart RRR lungs clear abd soft Calix n place draining clear yellow urine
Plan:
# CMML vs AML-NEW
-Elevated LDH/Uric Acid c/w tumor lysis syndrome
-Oncology following
-Bone marrow biopsy done 06/29/24-reviewed path with patient and ONC
-STAT transfer to [facility] for [place]- accepting physician- Trixie
#ANCELMO due to acute process with tumor lysis syndrome and urinary retention
- calix placed
- monitor I and I
# Urinary Retention from BPH
- calix placed
Other problems:
Hypokalemia-resolved
Hyponatremia, mild
Essential hypertension: Continue BB
BPH: Cont finasteride and solifenacin
Obesity due to excess calories
Patient's updated at length at bedside.
FULL/SCDs with thrombocytopenia
Dispo DC to [facility]!
Time spent coordinating care, transfer planning, review of DC plan of care with resident, transition of care to [facility], review of records, med rec/scripts sent electronically, consults, notes, d/w consultants, nursing, family, and CM�36 mins
Original Note:
Today's Communication/Plan
-
Transfer to [facility]
Assessment / Plan
Assessment / Plan
69-year-old male presents per recs from pcp due to abnormal labs and fatigue, early satiety as well as weight loss.
#Leukocytosis
--Potentially secondary to CMML vs AML
--White blood cell count 130
--associated anemia/thrombocytopenia
--no evidence of acute DIC with normal fibrinogen
--Oncology input appreciated
--Bone marrow biopsy completed on 06/29/23
--Peripheral flow findings concerning for high grade myeloid neoplasm.
--Pt accepted in transfer to [facility] by Dr. James, heme malignancy service as level 0.
--Hydoxyurea 500mg bid per recs from heme/onc
#Hypokalemia
--resolved
#ANCELMO likely secondary to tumor lysis syndrome
--creatinine initially improved with IVFs
--cr 1.6 today
#Essential hypertension
--Continue metoprolol 50mg daily
#BPH
--Continue finasteride and Solifenacin
--Reportedly failed Flomax in the past
--Calix placed today
#Obesity
Full code
DVT prophylaxis�SCDs
Anticipated Discharge: Today
Subjective/Interval History
-
Date of Service: July 02, 2024
No new complaint
Objective Data
-
Labs:
Laboratory Results
07/02/24 07/02/24
07:10 08:32
WBC 130.6 H*
Hgb 8.0 L
Hct 23.9 L
Plt Count 48 L
APTT 39.6 H
Sodium 134 L
Potassium 3.7
Chloride 103
Carbon Dioxide 28
BUN 13
Creatinine 1.6 H
Glucose 116 H
Calcium 8.4
Total Bilirubin 0.6
AST 55
ALT 31
Alkaline Phosphatase 73
Vital Signs:
Vital Signs
Temp Pulse Resp BP Pulse Ox
98.8 F 86 20 125/77 98
07/02/24 06:49 07/02/24 06:49 07/02/24 06:49 07/02/24 06:49 07/02/24 06:49
I&O
07/01/24 07/02/24 07/03/24
06:59 06:59 06:59
Intake Total 1740 / 1740 850 / 850
Output Total 350 / 350 675 / 675 550 / 550
Balance 1390 / 1390 175 / 175 -550 / -550
Review of Systems
-
History Source: Patient
Constitutional: Reports No Symptoms
EENT: Reports No Symptoms Reported
Respiratory: Reports No Symptoms
Cardiac: Reports No Symptoms
Abdomen/GI: Reports No Symptoms
Genitourinary: Reports Difficulty Voiding; Denies Dysuria or Flank Pain
Skin: Reports No Symptoms
Neuro: Reports No Symptoms
Physical Exam
-
General: Well Developed, Well Nourished and No Apparent Distress
HEENT: Normocephalic and Atraumatic
Respiratory: Clear to Auscultation
Cardiac: Regular Rhythm and S1/S2
GI: Soft, Nontender and Nondistended
Genito-urinary: Calix
Musculoskeletal: No Clubbing, No Cyanosis and No Edema
Skin: Warm and Dry
Neuro: Awake, Alert and Oriented
Psych: Calm
Data Reviewed
-
CT Scan: Report Reviewed by me
Labs: Labs Reviewed by me, Discussed with Physician and Discussed with Patient
--- NOTE | 2024-07-02 17:07 | PTCARENOTE ---
Reported given to KERWIN Cardozo at [facility]. Phone number [phone].
[2024-07-02] MEDS: PROSCAR 5 MG PO (18:21)
[2024-07-02] MEDS: TOPROL XL 50 MG PO (18:21)
[2024-07-02] MEDS: DETROL LA 4 MG PO (18:22)
--- NOTE | 2024-07-02 18:31 | W.DCSUMMARY ---
Addendum entered and electronically signed by Preston Sheth MD 07/03/24 23:48:
Read, reviewed, and agree. See same day progress note for additional details. Transfer to [facility].
Mihai Sheth MD
Original Note:
Discharge Summary
Discharge Data
Date of Admission: 06/28/24
Date of Discharge: 07/03/24
Total time spent discharging patient (in min): 53
-
Pending Results: No
Hospital Course
Discharging Physician : Vishal Harrell MD ; Preston Sheth MD
Disposition : Transfer to [facility]
Primary care physician : Amandeep Montano
Principal Discharge diagnosis : Leukocytosis; concern for CMML vs AML
Chronic Discharge diagnosis : Essential hypertension, BPH, obesity
Hospital Course : 69-year-old male with past medical history significant for hypertension, and BPH who presented to [facility] ED for evaluation by recommendation of primary provider after receiving abnormal out patient labs. He had mild flulike
symptoms for more than 2 weeks which prompted PCP to order blood work. Labs in the ER showed white cell count of 84 with absolute neutrophils of 0.8. 6 blast. Anemia with hemoglobin of 9, microcytic. Thrombocytopenia platelets of 48. Potassium
3.1, creatinine 1.7, uric acid 10.9, LDH of 1000. Presentation is consistent with newly discovered CML versus AML with concerns for tumor lysis syndrome with associated anemia/thrombocytopenia. ANCELMO also likely due to tumor lysis syndrome. IV
fluids given to the patient. Potassium repleted, he was also given dose of allopurinol. Oncology was consulted. He also complained of trouble with urination and upon bladder scan more than 500 mL urine was obtained via straight cath, later due
to ongoing trouble with urination a Marquez was placed. He noted that he has BPH and trouble urination per a period of time and has been taking finasteride and Solifenacin he tried Flomax in the past but and discontinued due to lack of benefit. Bone
marrow biopsy was scheduled.Peripheral flow showed atypical myeloid blasts, 30%. Increased monocytes, 58%. 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 He was also started on hydroxyurea 500 mg twice
daily. Was discussed with Dr. James at [facility] for transfer. Patient was accepted to heme malignancy service as level [address] James for further evaluation and treatment.
Important imaging findings : CT Abd/pelvis W Iv Cont:
FINDINGS:
CHEST: The lung bases are clear.
ABDOMEN:
Hepatic steatosis. Small cyst in the caudate lobe of the liver. Splenomegaly measuring 14.9 cm in length. The gallbladder, bile ducts, pancreas, and bilateral adrenal glands are unremarkable. Punctate calculus in the lower pole of the left kidney.
No hydronephrosis.
The abdominal aorta is normal in caliber. Moderate to severe aortobiiliac calcified atherosclerosis.
Lymphadenopathy in the upper abdomen primarily involving the periportal and portacaval lymph node stations. Multiple other smaller lymph nodes throughout the upper abdomen, mesentery, and retroperitoneum.
Small fat-containing umbilical hernia.
Colonic diverticulosis, without evidence for acute diverticulitis. No bowel wall thickening, obstruction, or inflammation. No extraluminal free air, fluid collection, or ascites.
PELVIS: 0.8 cm calcification in the left posterior urinary bladder. Smaller layering calculi in the posterior mid and right lateral urinary bladder lumen. The prostate gland is enlarged. Coarse calcifications in the left and right peripheral zone of
the prostate gland. Small fat-containing right inguinal hernia.
SKELETON: Chronic degenerative changes of the spine, bilateral sacroiliac joints, hips, and symphysis pubis.
IMPRESSION:
1. Periportal and portacaval lymphadenopathy, nonspecific. Multiple scattered smaller lymph nodes in the upper abdomen, mesentery, and retroperitoneum.
2. Punctate left lower pole renal calculus.
3. Dependent calculi in the urinary bladder lumen with a largest measuring 0.8 cm.
4. Splenomegaly.
5. Hepatic steatosis.
Procedure findings : successful CT-guided bone marrow aspiration and core biopsy
Discharge Plan
-
Patient Disposition: Acute Care Hospital
Condition: Fair
Discharge Orders:
Discharge Patient (As Directed); Ordered 07/02/24
Ordered By: Vishal Harrell
Discharge Date and Time
Discharge Date/Time: 07/02/24 20:07
Print Language: KINYARWANDA
== END 2024-07-02 20:07 | disposition short-term general hospital (02) | DRG 834 ==
LOC: 4 EAST ACU 17:56
PROVIDERS: Internal Medicine; Internal Medicine Hematology & Oncology; Nurse Practitioner Family; Physician Assistant; Radiology Vascular & Interventional Radiology; ADMITTING PHYSICIAN Hospitalist; ATTENDING PHYSICIAN Family Medicine; CONSULT PHYSICIAN Internal Medicine Hematology & Oncology; EMERGENCY PHYSICIAN Student in an Organized Health Care Education/Training Program; FAMILY PHYSICIAN Internal Medicine
PROC: 07DR3ZX Extraction of Iliac Bone Marrow, Percutaneous Approach, Diagnostic (ICD-10-PCS; 2024-06-29)
PROC: 079T3ZX Drainage of Bone Marrow, Percutaneous Approach, Diagnostic (ICD-10-PCS; 2024-06-29)
DX: C92.00 Acute myeloblastic leukemia, not having achieved remission (principal); E88.3 Tumor lysis syndrome; N17.9 Acute kidney failure, unspecified; E87.1 Hypo-osmolality and hyponatremia; C93.10 Chronic myelomonocytic leukemia not having achieved remission; I10 Essential (primary) hypertension; N20.0 Calculus of kidney; N21.0 Calculus in bladder; K76.0 Fatty (change of) liver, not elsewhere classified; E87.6 Hypokalemia; G47.33 Obstructive sleep apnea (adult) (pediatric); Z86.79 Personal history of other diseases of the circulatory system; E78.2 Mixed hyperlipidemia; N40.1 Benign prostatic hyperplasia with lower urinary tract symptoms; R33.9 Retention of urine, unspecified; Z68.33 Body mass index [BMI] 33.0-33.9, adult; E66.09 Other obesity due to excess calories
CPT/HCPCS: 88305; 88311; 88312; 38222; 74177; 77012; 80053; 83615; 84550; 85025; 85384; 85610; 85730; 85732; 88313; 96360; 99285; Q9967